=== PATIENT | female | born 1960 | race Caucasian/White ===

== ENCOUNTER 2024-02-06 17:03 | Inpatient (IN) | payer OTHER ==
[~2024-02-06] VITALS: Ht 162.6 cm; Wt 65.8 kg
[~2024-02-06 17:03] MED LIST: CYCL10 PO; OXYACE5T PO
[2024-02-06] MEDS ORDERED: DiphenhydrAMINE HCl 50 MG/ML 1ML Vial IM ONE (17:50)
[2024-02-06] MEDS ORDERED: LORazepam 2 MG/ML 1ML Injection IM ONE (17:50)
[2024-02-06] MEDS ORDERED: Haloperidol Lactate Inj. 5 MG/ML Injection IM ONE (17:50)
[2024-02-06 19:01] LABS: BASOPHILS ABSOLUTE AUTO 0.02 K/mm3 (0.00-0.23); BASOPHILS PERCENT AUTO 0 % (0-2); EOSINOPHILS ABSOLUTE AUTO 0.04 K/mm3 (0.00-0.68); EOSINOPHILS PERCENT AUTO 1 % (0-6); Hematocrit 42.5 % (33.0-51.0); Hemoglobin 14.2 g/dL (11.5-16.0); IMMATURE GRAN ABSOLUTE AUTO 0.02 K/mm3 (0.00-0.10); IMMATURE GRAN PERCENT AUTO 0 % (0-1); LYMPHOCYTES ABSOLUTE AUTO 1.79 K/mm3 (0.84-5.20); LYMPHOCYTES PERCENT AUTO 25 % (21-46); MONOCYTES ABSOLUTE AUTO 0.55 K/mm3 (0.16-1.47); MONOCYTES PERCENT AUTO 8 % (4-13); Mean Corpuscular HGB 30.9 pg (26.0-34.0); Mean Corpuscular HGB Conc 33.4 g/dL (31.5-36.5); Mean Corpuscular Volume 92 fL (80-100); Mean Platelet Volume 9.9 fL (9.1-12.4); NEUTROPHILS ABSOLUTE AUTO 4.66 K/mm3 (1.96-9.15); NEUTROPHILS PERCENT AUTO 66 % (41-73); Platelet Count 216 K/mm3 (150-400); RDW Coefficient Variation 13.4 % (11.7-14.2); RDW Standard Deviation 45.7 fL (35.1-46.3); White Blood Cell Count 7.08 K/mm3 (4.00-11.30)
[2024-02-06 19:20] LABS: Albumin, Blood 3.7 g/dL (3.4-5.0); Albumin/Globulin Ratio 1.1 (0.8-1.8); Bilirubin, Total 0.5 mg/dL (0.1-1.0); Bun/Creatinine Ratio 10.3 (12.0-20.0); Creatinine, Blood 0.78 mg/dL (0.40-1.00); Globulin, Blood 3.5 g/dL (2.2-4.0); Potassium, Blood 3.3 mmol/L (3.5-5.5); Total Protein, Blood 7.2 g/dL (6.4-8.2)
[2024-02-06 20:02] LABS: Influenza A, PCR NEGATIVE (NEGATIVE); Influenza B, PCR NEGATIVE (NEGATIVE); Resp Syncytial Virus, PCR NEGATIVE (NEGATIVE); SARS-Cov-2 (COVID-19) PCR, MMC NEGATIVE (NEGATIVE)
[2024-02-06] MEDS ORDERED: SERT50 (21:38)
[2024-02-06] MEDS ORDERED: GABA300 (21:39)
[2024-02-06] MEDS ORDERED: TAMS.4ER PO (21:39)
[2024-02-07 09:01] LABS: Source, Urine Clean Catch
[2024-02-07 09:08] LABS: Appearance, Urine Clear (Clear); Bilirubin, Urine Neg (Neg); Blood, Urine Neg (Neg); Color, Urine Yellow (P-Yellow); Glucose Qualitative, Urine Neg (Neg); Ketones, Urine 1+ (Neg); Leukocyte Esterase, Urine Neg (Neg); Nitrite, Urine Neg (Neg); Protein, Urine 1+ (Neg); Urobilinogen, Urine NORM (Normal)
[2024-02-07 09:21] LABS: U Amphetamine Screen Not Detected; U Barbituate Screen Not Detected; U Benzodiazapine Screen DETECTED; U Buprenorphine Screen Not Detected; U Cannabinoids Screen Not Detected; U Cocaine Screen Not Detected; U Methadone Screen Not Detected; U Methamphetamine Screen Not Detected; U Opiates Screen Not Detected; U Oxycodone Screen Not Detected; U Phencyclidine Screen Not Detected
[2024-02-07] MEDS ORDERED: GABA300 PO (18:16)
[2024-02-07] MEDS ORDERED: SERT50 PO (18:16)
[2024-02-12] MEDS ORDERED: BUPR150T2 PO (11:26)
[2024-02-12] MEDS ORDERED: QUET200 PO (11:27)
== END 2024-02-07 17:21 | disposition other institution (70) | DRG 885 ==
LOC: ER 17:03 → EOR 17:04
PROVIDERS: Student in an Organized Health Care Education/Training Program; ADMIT Emergency Medicine
DX: F32.3 Major depressive disorder, single episode, severe with psychotic features (principal); M54.2 Cervicalgia; G89.29 Other chronic pain; Z90.710 Acquired absence of both cervix and uterus; Z79.899 Other long term (current) drug therapy
CPT/HCPCS: 0241U; 70450; 80053; 85025; 86592; 93005; 93010; 96372; 99285-25; G0378; J1200; J1630; J2060